=== PATIENT | male | born 1955 | race Caucasian/White ===

== ENCOUNTER 2021-08-03 19:42 | Emergency (ER) | payer BC ==
[2021-08-03] MEDS ORDERED: HYDROCODON-ACE1 EAC4 PO (22:27)
== END 2021-08-03 23:45 | disposition home or self-care (01) ==
LOC: ER1 19:42
DX: S82.431A Displaced oblique fracture of shaft of right fibula, initial encounter for closed fracture (principal); S82.831A Other fracture of upper and lower end of right fibula, initial encounter for closed fracture; I10 Essential (primary) hypertension; Z87.442 Personal history of urinary calculi; Z88.0 Allergy status to penicillin; Z88.8 Allergy status to other drugs, medicaments and biological substances; W01.0XXA Fall on same level from slipping, tripping and stumbling without subsequent striking against object, initial encounter
CPT/HCPCS: 29515; 73030; 73610; 99283